=== PATIENT | female | born 1960 ===

== ENCOUNTER 2024-02-22 21:02 | Inpatient (IN) | payer MEDICARE, OTHER ==
[~2024-02-22] VITALS: Ht 170.2 cm; Wt 122.9 kg
[2024-02-22] MEDS ORDERED: Vasopressin 20 UNITS in NS 100 ML IV PRN (21:15)
[2024-02-22] MEDS ORDERED: NS 1,000 ML IV SCH (21:15)
[2024-02-22 21:50] VITALS: BP 142/120; PULSE 74; TEMP 97.6
[2024-02-22] MEDS ORDERED: Acetaminophen 325 MG TAB PO PRN (22:00)
[2024-02-22] MEDS ORDERED: Ondansetron 4 MG/2 ML VIAL IV PRN (22:00)
[2024-02-22 22:34] LABS: OSMOLALITY-URINE random 291 Osm/kg (50-1200)
[2024-02-22 23:06] LABS: INR 1.1 (0.8-3.0); PROTHROMBIN TIME 11.9 SECONDS (9.7-12.8)
[2024-02-22 23:20] LABS: CALCIUM 9.6 mg/dL (8.4-10.2); CREATININE, serum 3.63 mg/dL (0.57-1.11); MAGNESIUM 1.7 mg/dL (1.6-2.6); PHOSPHOROUS 5.1 mg/dL (2.3-4.7); POTASSIUM 4.2 mEq/L (3.5-4.5)
[2024-02-22] MEDS ORDERED: SINGULAIR 110 MG/TAB PO (23:45)
[2024-02-22] MEDS ORDERED: ZYLOPRIM 300MG300 MG PO (23:47)
[2024-02-22] MEDS ORDERED: ZOFRAN ODT4 MG PO (23:47)
[2024-02-22] MEDS ORDERED: ZYRTEC 10MG10 MG PO (23:48)
[2024-02-22] MEDS ORDERED: ALBUTEROL1.25 MG/3 IH (23:55)
[2024-02-22] MEDS ORDERED: LYRICA 100MG C100 M1 PO (23:58)
[2024-02-22] MEDS ORDERED: ABILIFY5 MG PO (23:59)
[2024-02-23] VITALS (14 sets, daily range): BP systolic 71–142; BP diastolic 47–77; PULSE 54–77; TEMP 97–98.4
[2024-02-23 01:26] LABS: CALCIUM 9.3 mg/dL (8.4-10.2); CREATININE, serum 3.67 mg/dL (0.57-1.11); POTASSIUM 4.1 mEq/L (3.5-4.5)
[2024-02-23] MEDS ORDERED: PROAIR HFA0.09 MG/AC IH (01:31)
[2024-02-23] MEDS ORDERED: ZOFRAN 4MG T4 MG/TAB PO (01:39)
[2024-02-23] MEDS ORDERED: ZOCOR 40MG40 MG PO (01:39)
[2024-02-23] MEDS ORDERED: PROTONIX 40MG T40 MG PO (01:39)
[2024-02-23] MEDS ORDERED: INDOCIN50 MG PO (01:41)
[2024-02-23] MEDS ORDERED: Albuterol 0.083% Neb Soln 2.5 MG/3 ML UD IH PRN (01:45)
[2024-02-23 03:30] LABS: CREATININE, serum 3.51 mg/dL (0.57-1.11)
[2024-02-23 06:43] LABS: CALCIUM 9.7 mg/dL (8.4-10.2); CREATININE, serum 3.4 mg/dL (0.57-1.11); POTASSIUM 3.7 mEq/L (3.5-4.5)
--- NOTE | 2024-02-23 07:00 | NUR ---
REPORT RECIEVED FROM GT SON. LEVOPHED AND NS INFUSING TO PERIPHERAL IV TO L FOREARM. ISLAS CATHETER IN PLACE TO DEPENDENT DRAINAGE. PT IS ALERT AND IS ABLE TO ANSWER ORIENTATION QUESTIONS APPROPRIATELY BUT IS HALLUCINATING AND REPORTS SEEING NUNS AND CATS IN HER ROOM. CALL LIGHT IN REACH AND BED ALARM ON FOR PT SAFETY.
[2024-02-23 07:01] LABS: BASO % 0.2 % (0.0-2.0); EOS # 0.2 K/mm3 (0.0-0.7); EOS % 1.5 % (0.0-4.0); GRAN # 12.2 K/mm3 (1.4-6.5); GRAN % 84.6 % (42.2-75.2); HEMOGLOBIN 12.3 g/dl (12.5-16.0); LYMPH # 1.2 K/mm3 (1.2-3.4); LYMPH % 8.6 % (20.0-51.0); MEAN CELL VOLUME 89 fl (80.0-100.0); MEAN CORPUSCULAR HEMOGLOBIN 33 pg (27-31); MEAN CORPUSCULAR HGB CONC 37 g/dl (33.0-37.0); MEAN PLATELET VOLUME 12.4 fl (7.4-10.4); MONO # 0.7 K/mm3 (0.1-0.6); MONO % 4.6 % (1.7-9.3); PLATELET COUNT 254 K/mm3 (130-400); RED BLOOD COUNT 3.74 M/mm3 (4.10-5.30); REDCELL DISTRIBUTION WIDTH-CV 12.8 % (11.5-14.5)
[2024-02-23 07:02] LABS: HEMATOCRIT 33.3 % (37.0-47.0)
[2024-02-23] MEDS ORDERED: Heparin 5,000 UNITS/ML 1 ML VIAL SQ SCH (08:00)
[2024-02-23 08:48] LABS: CALCIUM 9.9 mg/dL (8.4-10.2); CREATININE, serum 3.19 mg/dL (0.57-1.11); POTASSIUM 3.8 mEq/L (3.5-4.5)
[2024-02-23] MEDS ORDERED: Montelukast 10 MG TAB PO SCH (09:00)
[2024-02-23] MEDS ORDERED: Pantoprazole 40 MG in NS 10 ML IV SCH (09:00)
[2024-02-23 09:54] LABS: CALCIUM 9.8 mg/dL (8.4-10.2); CREATININE, serum 2.95 mg/dL (0.57-1.11); POTASSIUM 3.7 mEq/L (3.5-4.5)
[2024-02-23 12:32] LABS: CALCIUM 9.7 mg/dL (8.4-10.2); CREATININE, serum 2.79 mg/dL (0.57-1.11); POTASSIUM 3.6 mEq/L (3.5-4.5)
[2024-02-23 13:55] LABS: CALCIUM 9.8 mg/dL (8.4-10.2); CREATININE, serum 2.77 mg/dL (0.57-1.11); POTASSIUM 3.7 mEq/L (3.5-4.5)
--- NOTE | 2024-02-23 15:42 | NUR ---
RAYMOND reviewed patient's chart and noticed patient came from [facility]. SW confirmed with [facility] that patient is currently in their skilled facility. SW was notified by patient's nurse that patient has been hallucinating in her room. pest control worker helper attempted to speak with patient to complete assessment. Patient was asleep and snoring. Patient would not wake to verbal cues. SW attended multidisciplinary meeting to discuss discharge plan. RAYMOND was notified patient may need to be transferred to another facility once medically stable enough and Dr. Estevez wanted to know if patient's family was on board for treating aggressively. RAYMOND attempted to meet with patient again but was working with therapy. SW contacted patient's , Hemanth, P# [phone], to discuss discharge planning. Patient is currently living at [facility] for rehab as she is unable to use her right leg. RAYMOND asked if the plan is to return there upon discharge. Hemanth expressed that was the plan although he would rather she go to another facility as [facility] is not doing any therapy for her and is using a lift to move her. RAYMOND explained Dr. Estevez asked if they would like patient to continue with aggressive treatment if she were need to be transferred elsewhere. Hemanth stated "of course." PCP is Dr. Pelayo, Pharmacy is either [facility] or [facility]. No issues affording medications. Insurance is Medicare A and B and [employer]. No DPOA-HC and Hemanth stated he was the one that has been helping patient make decisions. DME is a lift and wheelchair at nursing facility. Patient needs total support for ADLS at this time. RAYMOND will continue to follow. Discharge plan: pending medical status
--- NOTE | 2024-02-23 15:57 | NUR ---
[employer] worker faxed clinical updates to [facility].
[2024-02-23 16:19] LABS: CALCIUM 8.4 mg/dL (8.4-10.2); CREATININE, serum 2.32 mg/dL (0.57-1.11); POTASSIUM 3.1 mEq/L (3.5-4.5)
[2024-02-23 18:21] LABS: CALCIUM 8.1 mg/dL (8.4-10.2); CREATININE, serum 2.17 mg/dL (0.57-1.11); POTASSIUM 3.1 mEq/L (3.5-4.5)
[2024-02-23] MEDS ORDERED: *Potassium Replacement Protocol MC SCH (18:45)
[2024-02-23] MEDS ORDERED: Potassium Chloride 100 ML IV ONE (18:45)
[2024-02-23 21:12] LABS: CALCIUM 9.1 mg/dL (8.4-10.2); CREATININE, serum 2.33 mg/dL (0.57-1.11); POTASSIUM 3.7 mEq/L (3.5-4.5)
[2024-02-23] MEDS ORDERED: cefTRIAXone 2 G in Water For Injection,Sterile 20 ML IV SCH (22:00)
[2024-02-23 22:47] LABS: CREATININE, serum 2.17 mg/dL (0.57-1.11); POTASSIUM 3.7 mEq/L (3.5-4.5)
[2024-02-24] VITALS (10 sets, daily range): BP systolic 88–121; BP diastolic 47–71; PULSE 69–93; TEMP 97.4–98.7; O2SAT 79
[2024-02-24 02:56] LABS: CREATININE, serum 2.06 mg/dL (0.57-1.11); POTASSIUM 3.8 mEq/L (3.5-4.5)
[2024-02-24 06:06] LABS: BASO % 0.3 % (0.0-2.0); EOS # 0.1 K/mm3 (0.0-0.7); EOS % 1.1 % (0.0-4.0); GRAN # 7.2 K/mm3 (1.4-6.5); GRAN % 76.8 % (42.2-75.2); HEMATOCRIT 29.2 % (37.0-47.0); HEMOGLOBIN 10.8 g/dl (12.5-16.0); LYMPH # 1.3 K/mm3 (1.2-3.4); LYMPH % 13.5 % (20.0-51.0); MEAN CELL VOLUME 88 fl (80.0-100.0); MEAN CORPUSCULAR HEMOGLOBIN 32 pg (27-31); MEAN CORPUSCULAR HGB CONC 37 g/dl (33.0-37.0); MEAN PLATELET VOLUME 12.2 fl (7.4-10.4); MONO # 0.7 K/mm3 (0.1-0.6); MONO % 7.7 % (1.7-9.3); PLATELET COUNT 220 K/mm3 (130-400); RED BLOOD COUNT 3.33 M/mm3 (4.10-5.30); REDCELL DISTRIBUTION WIDTH-CV 12.8 % (11.5-14.5)
--- NOTE | 2024-02-24 07:00 | NUR ---
Report received from GT Hutchinson; patient currently resting in bed with NS and levophed running through patient's right upper arm PICC. Patient has a Johnson catheter in place; no other lines or tubes are in place at this time. Patient is on room air and patient's vital signs are within normal limits this morning.
[2024-02-24 07:36] LABS: ALBUMIN 2.9 g/dL (3.4-4.8); BILIRUBIN,TOTAL 0.4 mg/dL (0.2-1.2); CALCIUM 8.9 mg/dL (8.4-10.2); CREATININE, serum 1.89 mg/dL (0.57-1.11); POTASSIUM 3.6 mEq/L (3.5-4.5); TOTAL PROTEIN 6.1 g/dl (6.2-8.1)
[2024-02-24] MEDS ORDERED: Potassium Chloride 100 ML IV ONE (08:15)
[2024-02-24] MEDS ORDERED: ARIPiprazole 5 MG TAB PO SCH (10:12)
[2024-02-24 13:30] LABS: CALCIUM 8.9 mg/dL (8.4-10.2); CREATININE, serum 1.62 mg/dL (0.57-1.11); POTASSIUM 3.7 mEq/L (3.5-4.5)
--- NOTE | 2024-02-24 15:08 | NUR ---
RAYMOND faxed updates to [facility]
--- NOTE | 2024-02-24 19:10 | NUR ---
THIS NURSE RECIEVED REPORT FROM GT HAGER. THIS NURSE OBSERVED THE PATIENT PRIOR TO REPORT. PATIENT WAS SITTING IN BED, SCROLLING THROUGH HER PHONE. PATIENT STATED NO CONCERNS. THIS NURSE INTRODUCED HERSELF AND ORIENTED THE PATIENT TO THE SHIFT AGAIN. PATIENT STATED UNDERSTANDING. BED IN LOW POSITION, WHEELS LOCKED, AND CALL LIGHT WITHIN THE PATIENT'S REACH.
[2024-02-24 19:21] LABS: CALCIUM 7.9 mg/dL (8.4-10.2); CREATININE, serum 1.2 mg/dL (0.57-1.11)
[2024-02-24 19:27] LABS: POTASSIUM 2.9 mEq/L (3.5-4.5)
[2024-02-24] MEDS ORDERED: Simvastatin 40 MG **** subs to Atorvastatin 20 MG PO SCH (21:00)
[2024-02-24] MEDS ORDERED: Atorvastatin 20 MG TAB PO SCH (21:00)
[2024-02-24] MEDS ORDERED: Potassium Bicarbonate/Citrate 20 MEQ Effervescent TAB PO SCH (23:45)
[2024-02-25] VITALS: BP 86/50; PULSE 79; TEMP 99
[2024-02-25 01:03] LABS: CALCIUM 8.6 mg/dL (8.4-10.2); CREATININE, serum 1.24 mg/dL (0.57-1.11); POTASSIUM 3.3 mEq/L (3.5-4.5)
[2024-02-25 04:00] VITALS: BP 80/50; PULSE 70; TEMP 98.4
[2024-02-25] MEDS ORDERED: Morphine 4 MG/ML VIAL IV ONE (04:15)
[2024-02-25 04:16] LABS: BASO # 0.1 K/mm3 (0.0-0.2); BASO % 0.5 % (0.0-2.0); EOS # 0.2 K/mm3 (0.0-0.7); EOS % 2.3 % (0.0-4.0); GRAN # 6.3 K/mm3 (1.4-6.5); GRAN % 63.4 % (42.2-75.2); HEMATOCRIT 29.5 % (37.0-47.0); HEMOGLOBIN 10.5 g/dl (12.5-16.0); LYMPH # 2.3 K/mm3 (1.2-3.4); LYMPH % 23.5 % (20.0-51.0); MEAN CELL VOLUME 91 fl (80.0-100.0); MEAN CORPUSCULAR HEMOGLOBIN 32 pg (27-31); MEAN CORPUSCULAR HGB CONC 36 g/dl (33.0-37.0); MEAN PLATELET VOLUME 12.1 fl (7.4-10.4); MONO % 9.8 % (1.7-9.3); PLATELET COUNT 221 K/mm3 (130-400); RED BLOOD COUNT 3.25 M/mm3 (4.10-5.30); REDCELL DISTRIBUTION WIDTH-CV 13.2 % (11.5-14.5)
--- NOTE | 2024-02-25 04:24 | NUR ---
AROUND 0345, THIS PATIENT BEGAN COMPLAINING OF CHEST PAIN. PATIENT TURNED PALE AND WAS DESCRIBING THE CHEST PAIN TIGHTNESS. THIS NURSE THEN NOTED THE CHANGE IN PATIENT'S HEART RHYTHM AND WENT TO TELEMETRY TO COMPARE HOW THE PATIENT HAD BEEN PRIOR. THIS NURSE INCLUDED THE CHARGE NURSE AND CALLED JERMAINE ANTUNEZ. PATIENT WAS THEN NOTED TO HAVE A HEART RATE IN THE 130S, STEADY. PATIENT RECIEVED AN EKG PER JERMAINE OTOOLE. WE WERE TAKING THE EKG PATCHES OFF, WHEN THE PATIENT WENT BRADYCARDIC IN THE 40'S. AT THIS TIME THE PATIENT WAS STARING AT THE CEILING AND THEN BEGAN ANSWERING THIS NURSE'S ORIENTATION QUESTIONS. AT THIS TIME, THE PATIENT WAS ALERT AND ORIENTED X4. PATIENT WAS THEN STATING THAT HER CHEST PAIN HAD RESOLVED AND WAS FEELING BETTER. THE PATIENT'S VITAL SIGNS RETURNED TO THEIR BASELINE OF A HEART RATE IN THE 60-80'S. AED PADS STILL ON PATIENT FOR SAFETY. BED IN LOW POSITION, CALL LIGHT WITHIN THE PATIENT'S REACH.
[2024-02-25 04:29] LABS: CREATININE, serum 1.14 mg/dL (0.57-1.11); POTASSIUM 3.7 mEq/L (3.5-4.5)
[2024-02-25] MEDS ORDERED: Tenecteplase 50 MG/10 ML VIAL (after reconstitution) IV ONE (05:15)
[2024-02-25] MEDS ORDERED: Heparin 1,000 UNITS/0.2 ML Re-Bolus PRN IV (05:30)
[2024-02-25] MEDS ORDERED: [UNRECOGNIZED DRUG - REMARK] IV ONE (05:30)
[2024-02-25] MEDS ORDERED: Heparin/D5W 250 ML IV SCH (05:30)
[2024-02-25] MEDS ORDERED: Clopidogrel 300 MG DOSE (75 mg x 4 tabs) PO ONE (05:45)
[2024-02-25] MEDS ORDERED: Atorvastatin 80 MG TAB PO SCH (05:54)
[2024-02-25] MEDS ORDERED: Docusate Sodium 100 MG CAP PO SCH (05:55)
[2024-02-25 06:00] VITALS: BP 102/57; PULSE 78; TEMP 98.6
[2024-02-25] MEDS ORDERED: Pantoprazole 40 MG in NS 10 ML IV ONE (06:00)
[2024-02-25] MEDS ORDERED: Ondansetron 4 MG/2 ML VIAL IV ONE (06:00)
[2024-02-25] MEDS ORDERED: Mag/Al Hydrox/Simeth Susp 30 ML CUP PO PRN (06:00)
--- NOTE | 2024-02-25 06:46 | NUR ---
THE PATIENT LEFT WITH PICC LINE IN PLACE. HEPARIN, NS, AND LEVOPHED ALL RUNNING. BELONGINGS TAKEN WITH THE PATIENT. FAMILY NOTIFIED OF TRANSFER. PATIENT LEFT WITH FLIGHT NURSE AND CERTIFIED MEDICAL DOSIMETRIST AT 0646. GAVE REPORT TO AAKASH FUNK AT THIS TIME.
== END 2024-02-25 06:46 | disposition short-term general hospital (02) | DRG 871 ==
LOC: ICU 21:02
PROVIDERS: Internal Medicine; Nurse Practitioner Family; ADMIT Internal Medicine
PROC: 02H633Z Insertion of Infusion Device into Right Atrium, Percutaneous Approach (ICD-10-PCS; principal; 2024-02-22)
DX: A41.9 Sepsis, unspecified organism (principal); G93.41 Metabolic encephalopathy; I21.3 ST elevation (STEMI) myocardial infarction of unspecified site; R65.21 Severe sepsis with septic shock; E87.1 Hypo-osmolality and hyponatremia; N17.9 Acute kidney failure, unspecified; Z68.41 Body mass index [BMI] 40.0-44.9, adult; E87.8 Other disorders of electrolyte and fluid balance, not elsewhere classified; R16.0 Hepatomegaly, not elsewhere classified; K80.20 Calculus of gallbladder without cholecystitis without obstruction; J45.909 Unspecified asthma, uncomplicated; M10.9 Gout, unspecified; M19.90 Unspecified osteoarthritis, unspecified site; F32.A Depression, unspecified; E66.01 Morbid (severe) obesity due to excess calories; R29.898 Other symptoms and signs involving the musculoskeletal system; I10 Essential (primary) hypertension; F17.200 Nicotine dependence, unspecified, uncomplicated; E87.6 Hypokalemia; E86.1 Hypovolemia; G89.29 Other chronic pain; C54.1 Malignant neoplasm of endometrium
CPT/HCPCS: A4314; C1751; J0696; J1644; J2405; J2470; J3101; J3480; J7030; J7060; Q3014